=== PATIENT | male | born 1960 | race Caucasian/White ===

== ENCOUNTER 2016-12-09 17:31 | Emergency (ER) | payer MEDICAID, OTHER ==
[~2016-12-09] VITALS: Ht 165.1 cm; Wt 70.5 kg
[~2016-12-09 17:31] MED LIST: AMOX250C; ATOR10TA65; DOCU250C58 PO; IBUP800T25 PO; NO RX MEDS; OMEP20CA16 PO; ear drops
[2016-12-09 17:32] VITALS: Ht 165.1 cm; Wt 70.5 kg
[2016-12-09] MEDS ORDERED: IBUPROFEN 600 MG TAB PO ONE (18:00)
[2016-12-09] MEDS ORDERED: NORT25CA PO (18:12)
[2016-12-09] MEDS ORDERED: IBUP-1542 PO (18:12)
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
[2016-12-09 18:39] VITALS: BP 118/66; PULSE 77; RESP 18; TEMP 98.3
== END 2016-12-09 18:40 | disposition home or self-care (01) ==
LOC: FTE 17:31
DX: R51 Headache (principal)
CPT/HCPCS: 82962; Z7502; Z7610; 99283

== ENCOUNTER 2018-01-18 16:30 | Emergency (ER) | END 2018-01-18 18:55 | disposition home or self-care (01) ==